=== PATIENT | male | born 1965 | race Caucasian/White ===

== ENCOUNTER 2017-06-13 08:27 | Day surgery (SDC) | payer BC ==
[2017-06-08 09:02] LABS: Absolute Lymphocytes (CBC) 1.3 K/uL (0.7-4.9); Absolute Monocytes 0.6 K/uL (0.1-1.3); Basophils % 1.3 % (0-1.3); Eosinophils % 3.3 % (0-4.4); Hematocrit 45.2 % (39.6-49.0); Lymphocytes % 21.1 % (15.3-44.8); MCH 30.9 pg (27.0-35.0); MPV 9.1 fL (7.6-11.3); Monocytes % 10.2 % (3.3-12.3); RBC Red Blood Cell Count 4.91 M/uL (4.33-5.43)
[2017-06-08 09:06] LABS: Protime INR 1.01
[2017-06-08 09:26] LABS: Potassium 4.2 mEq/L (3.6-5.0)
--- NOTE | 2017-06-10 22:45 | EKG ---
Test Date: 2017-06-08 Test Time: 08:51:09 Operator Cavity Pump: ROBERTO MEASUREMENT RESULTS: Intervals: Rate: 60 AK: 164 QRSD: 100 QT: 402 QTc: 402 Webster: P: 43 AK: 164 QRS: -23 T: 13 INTERPRETIVE STATEMENTS: Normal sinus rhythm Normal ECG No previous ECG available for comparison Electronically Signed On 06-10-17 22:44:06 CDT by Danilo Francis
[~2017-06-13 08:27] MED LIST: CEFAZOLIN/SWI 2gm 2 GM/20 ML SYR IV SCH
--- OUTSIDE RECORDS SUMMARY | 2017-06-13 08:29 | XMS REPORT | Clinical Summary ---
:1965 Author Organization [facility] Address [address] [place] [id number] Care Team Providers Name Role Phone Asked, No Pcp Primary Care Provider Unavailable Allergies No Known Allergies Current Medications No known medications Active Problems Not on file Social History Tobacco Use Types Packs/Day Years Used Date Never Smoker Alcohol Use Drinks/Week oz/Week Comments Yes Sex Assigned at Date Recorded Not on file Last Filed Vital Signs Not on file Plan of Treatment Health Maintenance Due Date Last Done Comments COLONOSCOPY 06/04/2017 INFLUENZA VACCINE 09/26/2017 Results Not on fileafter 06/12/2016 Insurance Payer Benefit Plan / Group Subscriber ID Type Phone Address BCBS BCBS CHOICE PPO/FEDERAL EMPL PPO xxxxxxxxxxxx PPO Home: [place]ON[place] RED [phone] [phone]
[2017-06-13] MEDS ORDERED: Ringers Lactate 1,000 ML IV ONE ×3 (08:37→10:23)
[2017-06-13] MEDS ORDERED: CEFAZOLIN/SWI 1gm 1 GM/10 ML SYR ONE (08:38)
[2017-06-13] MEDS ORDERED: DEXAMETHASONE 4 MG/ML VIAL ONE (09:53)
[2017-06-13] MEDS ORDERED: EPINEPHRINE/PF 1 MG/ML AMP ONE ×4 (09:53→11:42)
[2017-06-13] MEDS ORDERED: FENTANYL CITR 100 MCG/2 ML ONE ×3 (09:54→13:23)
[2017-06-13] MEDS ORDERED: MIDAZOLAM HCL 2 MG/2 ML INJ ONE ×2 (09:54→10:17)
[2017-06-13] MEDS ORDERED: ROCURONIUM 50 MG/5 ML VIAL IV ONE (10:17)
[2017-06-13] MEDS ORDERED: ONDANSETRON 4 MG/2 ML VIAL ONE (10:17)
[2017-06-13] MEDS ORDERED: PROPOFOL 200 MG/20 ML VIAL IV ONE (10:17)
[2017-06-13] MEDS ORDERED: LIDOCAINE 2% MPF 5 ML VIAL ONE (10:17)
--- NOTE | 2017-06-13 14:10 | P.BOP ---
Preoperative diagnosis: left shoulder rotator cuff tear, SLAP tear, biceps tenosynovitis Postoperative diagnosis: same Primary procedure: L shoulder arthroscopic rotator cuff (subscapularis, supraspinatus) repair Secondary procedure: left shoulder arthroscopic SLAP debridement Other procedure(s): left shoulder open subpectoral biceps tenodesis Frontend Engineer: NONE,NONE Estimated blood loss: <10 cc Specimen: none Findings: see dictation Anesthesia: General Complications: None Implants: 2- 5.5 mm corkscrew, 2- 4.75 mm swivelock, 7x19 mm biotenodesis screw Fluids & blood products: per anesthesia Transferred to: Recovery Room Condition: Good
--- NOTE | 2017-06-13 15:18 | RAD REPORT ---
EXAM DESCRIPTION: RAD - Shoulder 1 View - 06/13/2017 2:37 pm FINDINGS: Single portable view of the left shoulder was obtained in. No fracture or dislocation. No acute shoulder joint finding.
[2017-06-13] MEDS ORDERED: LABETALOL HCL 100 MG/20 ML ONE (15:26)
[2017-06-13] MEDS ORDERED: HYDROCODONE/APAP 7.5/325 MG TAB ONE (15:30)
--- NOTE | 2017-06-14 06:53 | OP ---
Date of Procedure: 06/13/2017 Surgeon: Johnnie Thakkar MD Network Coordinator: None. Preoperative Diagnoses: 1.Left shoulder rotator cuff tear. 2.Left shoulder SLAP tear. 3.Left shoulder bicipital tenosynovitis. Postoperative Diagnoses: 1.Left shoulder rotator cuff tear. 2.Left shoulder SLAP tear. 3.Left shoulder bicipital tenosynovitis. Procedures Performed: 1.Left shoulder arthroscopic rotator cuff repair. 2.Left shoulder arthroscopic SLAP tear debridement. 3.Left shoulder open subpectoral biceps tenodesis. Anesthesia: General endotracheal. Fluids: Per Anesthesia record. Estimated Blood Loss: Less than 10 cc. Complications: None. Implants: 1.Two 5.5 mm Arthrex corkscrews. 2.Two 4.75 mm Arthrex SwiveLocks. 3.A 7 x 19 mm Bio-Tenodesis screw. Indication For Procedure: Joseline is a 52-year-old male who presented to my clinic with signs, sympt oms, and MRI findings consistent with left shoulder rotator cuff tear including the subscapularis as well as a bicipital tenosynovitis and SLAP tear. I discussed with the patient at length risks and be nefits associated with operative and nonoperative treatment. He expressed understanding and elected to proceed with operative treatment. Description Of Procedure: After informed consent was obtained, the patient was identified in the pre operative holding area. The left upper extremity was marked. He was then brought back to the PACU, where he underwent an interscalene block performed by Anesthesia. He was then taken back to the oper ating room, transferred to the operating table in a supine fashion, and placed under general endotrac heal anesthesia. He was placed in the beach chair position with his extremities well padded. The le ft upper extremity was examined. The patient had full range of motion and no instability of his left shoulder joint. The left upper extremity was then prepped and draped in usual sterile fashion. A t porter-out was initiated. The correct patient and procedure were confirmed and identified. The patient did receive his preoperative prophylactic antibiotics. Via the posterior portal position, a spinal needle was introduced in the glenohumeral joint and the shoulder was injected with 30 cc of normal sa line. A posterior portal was then created followed by an anterior portal. A diagnostic arthroscopy was performed. The patient was noted to have a subluxated biceps tendon secondary to full-thickness subscapularis tear. There was some fraying of the biceps tendon near the anchor and at that point, i t was elected to proceed with a biceps tenodesis. The biceps tenotomy was performed using a meniscal biter and the biceps tendon was cut at the insertion at the glenoid rim. The humeral head and gleno id were devoid of any large chondral injuries. The patient was also noted to have a retracted supras pinatus tear near the level of the glenoid anteriorly, consistent with an L-shaped tear pattern. The subscapularis was also torn just medial to the glenoid. There were no loose bodies noted within the axillary pouch. The anterior and posterior labrum were found to be intact. The superior labrum at the SLAP tear was then debrided using an arthroscopic shaver. Attention was first taken to the subsc apularis repair. An anterior lateral cannula was also placed. A traction stitch was placed using a scorpion suture passer and there was gentle traction placed on the subscapularis. Both elevator as w ell as an arthroscopic shaver and radiofrequency ablator were then used to clear off any adhesions to both the anterior and posterior aspects of the subscapularis. An arthroscopic shaver was then used to debride the lesser tuberosity and create a bleeding bony bed. A single 5.5 mm double-loaded Arthr ex corkscrew was then placed in the lesser tuberosity without complication and the sutures were passe d through the subscapularis from an [id number] direction in a horizontal mattress fashion. The sutures were tied and there was good reduction of the subscapularis on the lesser tuberosity. T he remaining sutures were then cut. Next, the arthroscope was brought into the subacromial space and subacromial bursectomy was performed. The greater tuberosity was then debrided using an arthroscopi c shaver to create a bleeding bony bed. The anterior release was then placed on the supraspinatus gi padma its retracted nature. An elevator was then used to help elevate the supraspinatus off the superi or aspect of the glenoid and the superior aspect of the supraspinatus was also debrided. An arthrosStuffle opic grasper was then used and it was noted that there was good reduction of the supraspinatus on the footprint of the greater tuberosity. Next, a stab incision was made laterally at the site of the ac romion and a 5.5 mm Arthrex corkscrew was placed which was double loaded. The sutures were then pass ed through the supraspinatus in [id number] fashion in a horizontal mattress fashion and th ey were tied and there was good reduction of the supraspinatus on the greater tuberosity. Two 4.75 m m SwiveLocks were then placed for lateral fixation using a crisscross fashion. There was good overal l reduction of the supraspinatus on its footprint. The remaining sutures were then cut. Next, atten tion was taken to the subpectoral biceps tenodesis. The arthroscopic instruments were then removed. Approximately, a 4 cm longitudinal incision was made just medial to the pec insertion on the proxima l humerus. Dissection was then taken down to the fascia, which was split and divided. The pec tendo n was then gently retracted superiorly and the long head of the biceps tendon was then removed out of the incision, 3 cm distal to the musculotendinous junction. It was marked and whipstitched using an Arthrex FiberLoop. The remaining tendon was then cut. The guide pin was then placed within the bic ipital groove in a unicortical fashion followed by a 7.5-mm reamer. A 7 x 19 mm Arthrex tenodesis sc rew was then placed with 1 suture through the screw and placed within the tunnel within the proximal humerus. There was good fit of the tendon as well as the screw and the suture was then tied over the tenodesis and remaining sutures were cut. The wound was then irrigated thoroughly with normal salin e. Subcutaneous tissue was approximated using 2-0 Vicryls. The skin and portals were approximated u sing a 3-0 Monocryl. Sterile dressings were applied. The patient was placed in a shoulder immobiliz er and awakened and transferred to PACU in stable condition. Postoperative Plan: We will follow a large rotator cuff repair protocol. We will hold off on physic al therapy until 6 weeks postoperatively. We will minimize external rotation given his subscapularis repair and he will follow up with me in clinic next week for wound checks. CORNELIO/MODL Voice ID: [id number] Report ID: [id number]
== END 2017-06-13 16:30 | disposition home or self-care (01) ==
LOC: OR 08:27
PROVIDERS: ATTEND Orthopaedic Surgery Sports Medicine
PROC: 0RBK4ZZ Excision of Left Shoulder Joint, Percutaneous Endoscopic Approach (ICD-10-PCS; 2017-06-13)
PROC: 0LS40ZZ Reposition Left Upper Arm Tendon, Open Approach (ICD-10-PCS; 2017-06-13)
PROC: 0LQ24ZZ Repair Left Shoulder Tendon, Percutaneous Endoscopic Approach (ICD-10-PCS; principal; 2017-06-13 10:15)
DX: M75.102 Unspecified rotator cuff tear or rupture of left shoulder, not specified as traumatic (principal); S43.432A Superior glenoid labrum lesion of left shoulder, initial encounter; M75.22 Bicipital tendinitis, left shoulder; F17.220 Nicotine dependence, chewing tobacco, uncomplicated
CPT/HCPCS: 36415; 73020; 80048; 85025; 85610; 85730; 93005; J0171; J0690; J2250; J2405; J3010